=== PATIENT | male | born 2000 | race African-American/Black ===

== ENCOUNTER 2019-06-17 23:32 | Emergency (ER) | payer MEDICAID ==
[~2019-06-17] VITALS: Ht 167.6 cm; Wt 64.0 kg
[~2019-06-17 23:32] MED LIST: MUCINEX
[2019-06-17 23:38] VITALS: BP 144/97
== END 2019-06-18 01:47 | disposition home or self-care (01) ==
LOC: ER 23:32
DX: M25.532 Pain in left wrist (principal); M25.531 Pain in right wrist; Y35.893A Legal intervention involving other specified means, suspect injured, initial encounter; Y93.89 Activity, other specified; Y92.89 Other specified places as the place of occurrence of the external cause
CPT/HCPCS: 73110; 73130; 99284